=== PATIENT | male | born 1990 | race Caucasian/White ===

== ENCOUNTER 2021-01-28 19:06 | Emergency (ER) | payer OTHER, SELFPAY ==
--- NOTE | ~2021-01-28 | XR_ITS ---
EXAMINATION: XR lumbar spine 2-3V DATE: 01/28/2021 20:04 INDICATION: Low back pain TECHNIQUE: Anteroposterior and lateral views of the lumbar spine, and cone-down lateral view of the l umbosacral junction were obtained. COMPARISON: None. FINDINGS: There is no fracture, dislocation, or subluxation. The vertebral body heights, alignment, a nd intervertebral disc spaces are normal. The bowel gas pattern is normal. IMPRESSION: 1. No acute osseous abnormality. Reviewed, dictated and finalized at location A.
--- NOTE | ~2021-01-28 | XR_ITS ---
EXAMINATION: XR thoracic spine 3V DATE: 01/28/2021 20:04 INDICATION: Back pain TECHNIQUE: AP, lateral and lateral swimmer's views of the thoracic spine were obtained. COMPARISON: None. FINDINGS: There is no fracture, dislocation, or subluxation. The vertebral body heights, alignment, a nd intervertebral disc spaces are normal. The paravertebral soft tissues are unremarkable. IMPRESSION: 1. No acute osseous abnormality. Reviewed, dictated and finalized at location A.
[2021-01-28 19:22] VITALS: BP 123/87; PULSE 113; RESP 20; TEMP 36.5; O2SAT 97
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
[2021-01-28] MEDS: ACETAMINOPHEN 500 MG TABLET 1000 MG PO (19:59)
[2021-01-28] MEDS: IBUPROFEN 400 MG TABLET 800 MG PO (20:00)
[2021-01-28 21:07] VITALS: BP 124/76; PULSE 91; RESP 18; TEMP 36.8; O2SAT 99
== END 2021-01-28 21:08 | disposition home or self-care (01) ==
PROVIDERS: Emergency Provider Emergency Medicine
DX: S39.012A Strain of muscle, fascia and tendon of lower back, initial encounter (principal); S29.012A Strain of muscle and tendon of back wall of thorax, initial encounter; F15.23 Other stimulant dependence with withdrawal; V48.5XXA Car driver injured in noncollision transport accident in traffic accident, initial encounter
CPT/HCPCS: 72072; 72100; 99283; A9270

== ENCOUNTER 2021-03-21 14:21 | Emergency (ER) | payer OTHER, SELFPAY ==
[2021-03-21 14:29] VITALS: BP 147/102; PULSE 92; RESP 16; TEMP 37.1; O2SAT 100
[2021-03-21 14:30] VITALS: BP 147/102; PULSE 92; RESP 16; TEMP 37.1; O2SAT 100
--- NOTE | 2021-03-21 14:42 | ED.MALEGU ---
HPI - Male Genitourinary General Chief complaint: Urogenital-Male Stated complaint: testicular pain Time Seen by Provider: 03/21/21 14:45 Source: patient, RN notes reviewed and old records reviewed Mode of arrival: ambulatory Limitations: no limitations History of Present Illness HPI Narrative: 30 year old male who presents to [facility] care with complaints of right testicular pain for the past 2 days which radiates to his right groin region. Patient denies any drainage from penis or any concern for STDs. He states that he just recently moved from [place] to [place] and has been lifting on furniture and boxes in process of moving. He states that his right testicle is swollen and extremely painful to touch.Patient states that he has not had any known fevers,chills or sweats. Patient does have past history of epididymitis. MD Complaint: testicle pain, testicle swelling and other (swelling with radiation to right groin) Onset (ago): day(s) (2) Duration: progressively worsening Location: right testicle Radiation: right inguinal region Severity: severe Severity scale (1-10): 7 Quality: sharp Relieving factors: none Exacerbating factors: palpation, movement and other (hurts to walk) Context: lifting Associated symptoms: Reports swelling and other (testicular pain) Related Data Sexually active: Yes Allergies Allergy/AdvReac Type Severity Reaction Status Date / Time No Known Allergies Allergy Verified 03/21/21 15:37 Review of Systems Review of Systems: Narrative: CONSTITUTIONAL: Denies fever, chills, or sweats. EYES: Denies visual changes, redness, or discharge. ENT: Denies rhinorrhea, congestion, sore throat, or otalgia. CARDIOVASCULAR: Denies chest pain, palpitations, or edema. RESPIRATORY: Denies cough or dyspnea. GASTROINTESTINAL: Positive for right groin pain,no nausea, vomiting, or diarrhea. GENITOURINARY: Denies dysuria or hematuria, positive for swelling and pain to right testicle with radiation of pain to right groin SKIN: Denies rash or itching. MUSCULOSKELETAL: Denies back pain, joint pain, or myalgia. NEUROLOGIC: Denies headache, numbness, or weakness. PSYCHIATRIC: Denies anxiety or depression. All systems reviewed & are unremarkable except as noted in HPI and below PMFSH Past Medical History Medical History (Updated 03/21/21 @ 17:37 by JW KaiserP, ) Epididymitis Surgical History Surgical History (Updated 03/21/21 @ 16:30 by Ovidio Paige [facility], ) No pertinent past surgical history Family History Family History Mother Crohn's disease Social History Social History Smoking status: Current every day smoker Tobacco type: cigarettes Alcohol intake: current Alcohol use details: social Substance use: former Other substance usage details: Previous intravenous methamphetamine use, 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 There is no relevant family history pertinent to the presenting complaint Exam Narrative: Exam Narrative: GENERAL: Well-appearing, well-nourished, and in no acute distress. HEAD: Normocephalic, atraumatic. EYES: PERRLA and EOMI. ENT: Nares clear, no rhinorrhea or epistaxis. Mucous membranes moist. NECK: Supple.no lymphadenopathy CHEST: Clear to auscultation. No respiratory distress.SAO2 100% on room air HEART: Regular rate and rhythm. No murmur heard. Normal peripheral pulses. ABDOMEN: Soft, tender to right groin, nondistended, normal active bowel sounds. descended testicles bilaterally with swelling and pain present to right testicle, very tender on palpation with
== END 2021-03-21 15:11 | disposition short-term general hospital (02) ==
PROVIDERS: Emergency Provider Registered Nurse
DX: N50.89 Other specified disorders of the male genital organs (principal); N50.811 Right testicular pain; F17.210 Nicotine dependence, cigarettes, uncomplicated
CPT/HCPCS: 99212; G0463

== ENCOUNTER 2021-03-21 15:14 | Emergency (ER) | payer OTHER, SELFPAY ==
--- NOTE | ~2021-03-21 | US_ITS ---
US scrotum doppler INDICATION: Right scrotal pain TECHNIQUE: Testicular sonogram utilizing grayscale and color Doppler FINDINGS: The testes are normal in size and appearance. No focal lesions are seen. The right testes measures 4.2 x 2.2 x 2.9 cm centimeters, and the left testis measures 4.2 x 2.6 x 3 cm cm. There is n ormal vascular flow to both testes. Right epididymis appears asymmetrically enlarged with increased vascularity, consistent with epididym itis. There is no varicocele or hydrocele. IMPRESSION: 1. Asymmetrically enlarged right epididymis with increased vascularity, consistent with epididymitis . Reviewed, dictated and finalized at location A. IMPRESSION: 1. Asymmetrically enlarged right epididymis with increased vascularity, consis tent with epididymitis.
[2021-03-21 15:17] VITALS: BP 116/85; PULSE 90; RESP 18; TEMP 36.7; O2SAT 96
--- NOTE | 2021-03-21 16:19 | ED.GENADULT ---
HPI - General Adult General Chief complaint: Urogenital-Male Stated complaint: sent from [facility], testicular pain, right Time Seen by Provider: 03/21/21 15:26 Source: patient Mode of arrival: ambulatory Limitations: no limitations History of Present Illness HPI narrative: Pt presents for evaluation of swelling and pain to the right testicle that started two night ago. He states he had similar symptoms in the past for which he was evaluated at [facility] in [place] about one year ago. He states he was treated with abx and symptoms resolved. He denies any fever, chills, nausea, vomiting, abdominal pain and urinary symptoms. He states pain in right testicle radiates into right groin. He is in a sexually monogamous relationship with a female partner who is asymptomatic. He states he has had STI testing in past which was negative. No hx of abdominal surgeries. No additional complaints or concern Related Data Allergies Allergy/AdvReac Type Severity Reaction Status Date / Time No Known Allergies Allergy Verified 03/21/21 15:37 Review of Systems Review of Systems: Narrative: CONSTITUTIONAL: Denies fever, chills, or sweats. EYES: Denies visual changes, redness, or discharge. ENT: Denies rhinorrhea, congestion, sore throat, or otalgia. CARDIOVASCULAR: Denies chest pain, palpitations, or edema. RESPIRATORY: Denies cough or dyspnea. GASTROINTESTINAL: Denies abdominal pain, nausea, vomiting, or diarrhea. GENITOURINARY: Reports right-sided testicular pain and swelling. Denies dysuria or hematuria. SKIN: Denies rash or itching. MUSCULOSKELETAL: Denies back pain, joint pain, or myalgia. NEUROLOGIC: Denies headache, numbness, dizziness, or weakness. PSYCHIATRIC: Denies anxiety or depression. 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 HEAD: Normocephalic, atraumatic. EYES: PERRLA and EOMI. ENT: Nares clear, no rhinorrhea or epistaxis. Mucous membranes moist. Oropharynx without tonsillar hypertrophy exudate or other lesions. Bilateral TMs pearly shetty nonbulging NECK: Supple. No adenopathy or masses. No carotid bruits or JVD CHEST: Clear to auscultation. No respiratory distress. No wheezes rales or rhonchi HEART: Regular rate and rhythm. No murmur heard. Normal peripheral pulses. ABDOMEN: Soft, nontender, nondistended, normal active bowel sounds. GENITOURINARY: No external genital lesions. No urethral discharge. Induration noted adjacent to the right testicle with associated tenderness. Left testicle palpation without any evidence of mass or induration noted. EXTREMITIES: Normal range of motion. No edema. SKIN: Warm, dry, no rash. NEURO: No focal deficits. Alert and oriented x3. PSYCH: Normal mood and affect. Course Course Emergency Course: This is a 30-year-old male who presents with right-sided testicular pain. U/S consistent with epididymitis. Upon receipt of U/S I discussed findings with patient. He indicates he had epididymitis in the past but STD testing was negativ
[2021-03-21 16:59] LABS: Basophils Percent Auto 0.2 % (0.2-1.2); Eosinophils Absolute Auto 0.1 K/mm3 (0-0.3); Eosinophils Percent Auto 1.2 % (0-4.4); Hematocrit 42.6 % (42.0-52.0); Hemoglobin 14.4 g/dL (14.0-18.0); Immature Granulocyte Absolute 0.03 K/mm3 (0.00-0.031); Immature Granulocyte Percent A 0.4 % (0-0.5); Lymphocytes Percent Auto 25.3 % (18.3-44.2); Mean Corpuscular HGB Conc 33.8 g/dl (32-36); Mean Corpuscular Hemoglobin 28.2 pg (26-34); Mean Corpuscular Volume 83.4 fl (80-100); Mean Platelet Volume 9.7 fl (7.4-10.4); Monocytes Absolute Auto 0.6 K/mm3 (0.1-0.6); Monocytes Percent Auto 7.2 % (2.6-8.5); Neutrophils Absolute Auto 5.5 K/mm3 (1.3-6.7); Neutrophils Percent Auto 65.7 % (45.5-73.1); Platelet Count Result 205 k/mm3 (150-375); Red Blood Count 5.11 M/mm3 (4.6-6.20); Red Cell Distribution Width 13.1 % (11.5-14.5); White Blood Count 8.3 K/mm3 (4.5-10.0)
[2021-03-21 17:04] LABS: Add Urine Microscopic? YES; Appearance Urine Clear (Clear); Bilirubin Urine Negative (Negative); Blood Urine Negative (Negative); Color Urine Yellow (Yellow); Glucose Urine UA Negative (Negative); Ketones Urine Negative (Negative); Leukocyte Esterase Ur Trace LEU/UL (Negative); Mucus Urine Rare /lpf; Nitrate Urine Negative (Negative); Protein Urine Negative (Negative); RBC Urine 0-2 /hpf (0-2); Specific Grav Ur 1.021 (1.001-1.035); Squamous Epithelial Cell Urine Rare /hpf (Few); Urobilinogen Urine Negative mg/dL (<2.0); WBC Urine 0-3 /hpf
[2021-03-21 17:09] LABS: Alanine Aminotransferase 54 U/L (4-50); Albumin Level 4.6 g/dL (3.5-5.1); Alkaline Phosphatase 72 U/L (38-126); Anion Gap 8 mmol/L (8-16); Aspartate Amino Transferase 37 U/L (17-59); Bilirubin,Total 0.4 mg/dL (0.2-1.3); Blood Urea Nitrogen 10 mg/dL (9-20); Calcium 9.5 mg/dL (8.4-10.2); Carbon Dioxide 28 mmol/L (22-30); Chloride 104 mmol/L (98-107); Estimated CRCL calculation 114 ml/min; Estimated Glomerular Filt Rate > 60; Glucose 91 mg/dL (75-110); INR 0.8; Potassium 4.1 mmol/L (3.4-5.0); Prothrombin Time 11.9 Seconds (11.1-14.7); Sodium 140 mmol/L (137-145)
[2021-03-21 17:12] LABS: Partial Thromboplastin Time 32.2 SECONDS (22.3-36.8)
[2021-03-21] MEDS: cefTRIAXone 1 GM VIAL 0.5 GM IM (17:44)
[2021-03-21 17:55] VITALS: BP 142/90; PULSE 84; RESP 18; O2SAT 98
== END 2021-03-21 17:56 | disposition home or self-care (01) ==
PROVIDERS: Emergency Provider Nurse Practitioner
DX: N45.1 Epididymitis (principal); F17.210 Nicotine dependence, cigarettes, uncomplicated
CPT/HCPCS: 36415; 76870; 80053; 81001; 85025; 85610; 85730; 87491; 87591; 87661; 93976; 96372; 99284; J0696

== ENCOUNTER 2021-05-19 12:37 | Emergency (ER) | payer OTHER, SELFPAY ==
--- NOTE | ~2021-05-19 | XR_ITS ---
XR shoulder LT min 2V 05/19/2021 13:20 INDICATION: Left shoulder pain. PROCEDURE: 4 views of the left shoulder COMPARISON: No prior studies for comparison. FINDINGS: Fracture, dislocation or subluxation is not identified. The soft tissues appear within norm al limits. No foreign bodies are identified. IMPRESSION: 1: NO ACUTE BONE OR JOINT ABNORMALITY IDENTIFIED. Reviewed, dictated and finalized at location A.
[2021-05-19 12:47] VITALS: BP 133/88; PULSE 90; RESP 16; TEMP 36.9; O2SAT 98
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
== END 2021-05-19 13:35 | disposition home or self-care (01) ==
PROVIDERS: Emergency Provider Emergency Medicine
DX: S49.92XA Unspecified injury of left shoulder and upper arm, initial encounter (principal); W19.XXXA Unspecified fall, initial encounter; F17.210 Nicotine dependence, cigarettes, uncomplicated
CPT/HCPCS: 73030; 99213; G0463